=== PATIENT | female | born 1950 | race Caucasian/White ===

== ENCOUNTER 2024-11-25 11:38 | Outpatient (CLI) | payer OTHER | END 2024-11-25 11:39 | disposition home or self-care (01) | LOC: RAD 11:38 | PROVIDERS: ATTEND Student in an Organized Health Care Education/Training Program | DX: R41.82 Altered mental status, unspecified (principal); R06.02 Shortness of breath; Z95.828 Presence of other vascular implants and grafts; I51.7 Cardiomegaly | CPT/HCPCS: 70450; 71046 ==